=== PATIENT | female | born 1935 | race Caucasian/White ===

== ENCOUNTER 2021-07-18 13:34 | Inpatient (IN) | payer MEDICARE ==
[~2021-07-18 13:34] MED LIST: Iopamidol 370 76% 100 ML VIAL ONE
[2021-07-18 14:11] LABS: #Lymphocytes 1.2 thou/uL (1.20-3.40); #Monocytes 0.5 thou/uL (0.11-0.59); #Neutrophils 2.7 thou/uL (1.40-6.50); %Basophils 0.3 % (0.0-1.0); %Eosinophils 1.1 % (0.0-10.0); %Lymphocytes 26.5 % (21.0-51.0); %Monocytes 10.4 % (0.0-10.0); %Neutrophils 61.7 % (42.0-75.0); Hemoglobin 10.5 g/dL (12.0-16.0); Mean Corpuscular HGB CONC 33.6 g/dL (32.0-36.0); Mean Corpuscular Hemoglobin 30.3 pg (27.0-31.0); Mean Corpuscular Volume 90.3 fL (78.0-98.0); Mean Platelet Volume 6.7 fL (7.4-10.4); Platelet Count 201 thou/uL (130-400); RBC Distribution Width 12.9 % (11.5-14.5); Red Blood Cell (RBC) Count 3.46 mill/uL (4.20-5.40); White Blood Cell (WBC) Count 4.4 thou/uL (4.8-10.8)
[2021-07-18 14:18] LABS: PTT 26.2 sec (22.9-36.1); Prothrombin Time 13.5 sec (12.0-14.7)
[2021-07-18 14:30] LABS: ALT (SGPT) Less than 7 U/L (8-55); AST (SGOT) 10 U/L (5-34); Albumin 3.3 g/dL (3.4-4.8); Alkaline Phosphatase 63 U/L (40-110); Anion Gap 11 mmol/L (10-20); BUN (Urea Nitrogen) 34 mg/dL (9.8-20.1); Bilirubin, Total 0.4 mg/dL (0.2-1.2); CK (CPK) 57 U/L (29-168); Calc. Creatinine Clearance 0 mL/min (70-130); Calcium 8.7 mg/dL (7.8-10.44); Carbon Dioxide 24 mmol/L (23-31); Chloride 104 mmol/L (98-107); Globulin 2.7 g/dL (2.4-3.5); Glucose 108 mg/dL (83-110); Sodium 135 mmol/L (136-145)
[2021-07-18] MEDS ORDERED: Aspirin Chewable 81 MG TAB ONE (15:44)
[2021-07-18] MEDS ORDERED: Ondansetron PF 4 MG/2 ML Vial IVP PRN (15:55)
[2021-07-18] MEDS ORDERED: Senokot S 8.6-50 MG TAB PO PRN (15:55)
[2021-07-18] MEDS ORDERED: Bisacodyl 5 MG TAB PO PRN (15:55)
[2021-07-18 17:08] LABS: Albumin 3.6 g/dL (3.4-4.8); Anion Gap 12 mmol/L (10-20); BUN (Urea Nitrogen) 32 mg/dL (9.8-20.1); Bilirubin, Total 0.4 mg/dL (0.2-1.2); Calc. Creatinine Clearance 0 mL/min (70-130); Calcium 9.2 mg/dL (7.8-10.44); Carbon Dioxide 25 mmol/L (23-31); Chloride 103 mmol/L (98-107); Glucose 112 mg/dL (83-110); Protein, Total 6.6 g/dL (5.8-8.1); Sodium 136 mmol/L (136-145)
[2021-07-18 17:09] LABS: ALT (SGPT) Less than 7 U/L (8-55); AST (SGOT) 10 U/L (5-34); Alkaline Phosphatase 70 U/L (40-110)
[2021-07-18] MEDS ORDERED: hydrALAZINE 20 MG/ML VIAL SLOW IVP PRN ×2 (18:06→22:35)
[2021-07-18] MEDS: Sodium Chloride 0.9% 1,000 ML IV SCH (18:17)
[2021-07-18] MEDS ORDERED: hydrALAZINE 20 MG/ML VIAL ONE (18:19)
[2021-07-18 20:37] LABS: SARS-CoV-2 NAA Rapid Test Not Detected (NotDetected)
[2021-07-18] MEDS ORDERED: Atorvastatin Calcium 40 MG TAB PO SCH (21:00)
[2021-07-18] MEDS ORDERED: Famotidine/PF 20 mg/2ml Vial SLOW IVP SCH (21:00)
[2021-07-18 21:34] VITALS: BMI 21.7
[2021-07-19] MEDS: Melatonin 3 MG TAB PO PRN (00:37)
[2021-07-19] MEDS: Acetaminophen 325 MG TAB PO PRN (00:37)
[2021-07-19 06:39] LABS: #Eosinphils 0.1 thou/uL (0.0-0.7); #Lymphocytes 1.3 thou/uL (1.20-3.40); #Monocytes 0.6 thou/uL (0.11-0.59); #Neutrophils 3.2 thou/uL (1.40-6.50); %Basophils 0.5 % (0.0-1.0); %Eosinophils 1.3 % (0.0-10.0); %Lymphocytes 24.9 % (21.0-51.0); %Neutrophils 62.3 % (42.0-75.0); Hemoglobin 11.1 g/dL (12.0-16.0); Mean Corpuscular Hemoglobin 30.1 pg (27.0-31.0); Mean Corpuscular Volume 88.5 fL (78.0-98.0); Platelet Count 202 thou/uL (130-400); RBC Distribution Width 12.9 % (11.5-14.5); Red Blood Cell (RBC) Count 3.68 mill/uL (4.20-5.40); White Blood Cell (WBC) Count 5.2 thou/uL (4.8-10.8)
[2021-07-19 06:48] LABS: Hemoglobin A1c 5.6 % (4.0-6.0)
[2021-07-19] MEDS ORDERED: Metoprolol Tartrate 25 MG TAB PO SCH (09:00)
[2021-07-19] MEDS ORDERED: Amlodipine 10 MG TAB PO SCH (09:00)
[2021-07-19] MEDS ORDERED: Labetalol HCl 100 MG/20 ML VIAL SLOW IVP PRN (10:11)
[2021-07-19] MEDS: Aspirin Chewable 81 MG TAB PO SCH (10:50)
[2021-07-19] MEDS ORDERED: Clopidogrel Bisulfate 300 MG TAB PO SCH (11:00)
[2021-07-19] MEDS: Sodium Chloride 0.9% 1,000 ML IV SCH ×2 (11:27→21:17)
[2021-07-19] MEDS: Famotidine/PF 20 mg/2ml Vial SLOW IVP SCH (21:18)
[2021-07-19] MEDS: Atorvastatin Calcium 40 MG TAB PO SCH (21:18)
[2021-07-20 08:16] LABS: Free T4 (Free Thyroxine) 1.67 ng/dL (0.70-1.48)
[2021-07-20 08:17] LABS: #Basophils 0.1 thou/uL (0.0-0.2); #Eosinphils 0.1 thou/uL (0.0-0.7); #Lymphocytes 1.4 thou/uL (1.20-3.40); #Monocytes 0.9 thou/uL (0.11-0.59); %Basophils 0.6 % (0.0-1.0); %Eosinophils 0.8 % (0.0-10.0); %Lymphocytes 16.5 % (21.0-51.0); %Monocytes 10.4 % (0.0-10.0); %Neutrophils 71.6 % (42.0-75.0); Hemoglobin 12.8 g/dL (12.0-16.0); Mean Corpuscular HGB CONC 33.2 g/dL (32.0-36.0); Mean Corpuscular Hemoglobin 29.6 pg (27.0-31.0); Mean Corpuscular Volume 89.3 fL (78.0-98.0); Mean Platelet Volume 6.9 fL (7.4-10.4); Platelet Count 241 thou/uL (130-400); RBC Distribution Width 13.1 % (11.5-14.5); Red Blood Cell (RBC) Count 4.34 mill/uL (4.20-5.40); White Blood Cell (WBC) Count 8.4 thou/uL (4.8-10.8)
[2021-07-20 08:31] LABS: PTT 24.1 sec (22.9-36.1); Prothrombin Time 13.7 sec (12.0-14.7)
[2021-07-20 08:34] LABS: ALT (SGPT) 9 U/L (8-55); AST (SGOT) 21 U/L (5-34); Albumin 3.7 g/dL (3.4-4.8); Alkaline Phosphatase 75 U/L (40-110); Anion Gap 17 mmol/L (10-20); BUN (Urea Nitrogen) 21 mg/dL (9.8-20.1); Bilirubin, Total 0.6 mg/dL (0.2-1.2); Calc. Creatinine Clearance 30 mL/min (70-130); Calcium 9.6 mg/dL (7.8-10.44); Carbon Dioxide 18 mmol/L (23-31); Chloride 105 mmol/L (98-107); Globulin 3.4 g/dL (2.4-3.5); Glucose 100 mg/dL (83-110); Potassium 3.8 mmol/L (3.5-5.1); Protein, Total 7.1 g/dL (5.8-8.1); Sodium 136 mmol/L (136-145)
[2021-07-20] MEDS: Clopidogrel Bisulfate 75 MG TAB PO SCH (10:29)
[2021-07-20] MEDS: Levothyroxine Sodium 100 MCG TAB PO SCH (10:29)
[2021-07-20] MEDS: Aspirin Chewable 81 MG TAB PO SCH (10:30)
[2021-07-20] MEDS ORDERED: Iopamidol-370 76% 500 ML 1 ML ONE (11:10)
[2021-07-20] MEDS: Sodium Chloride 0.9% 1,000 ML IV SCH ×2 (18:00→18:48)
[2021-07-20] MEDS: Atorvastatin Calcium 40 MG TAB PO SCH (21:37)
[2021-07-20] MEDS: Famotidine/PF 20 mg/2ml Vial SLOW IVP SCH (21:38)
[2021-07-21] MEDS: Levothyroxine Sodium 100 MCG TAB PO SCH (05:09)
[2021-07-21] MEDS: Aspirin Chewable 81 MG TAB PO SCH (11:37)
[2021-07-21] MEDS: Aspirin 300 MG Suppository PR SCH (11:41)
[2021-07-21] MEDS: D5W-AA 4.25% with LYTES 1,000 ML IV SCH ×2 (12:50→23:22)
[2021-07-21] MEDS ORDERED: Atorvastatin Calcium 40 MG TAB PO SCH (14:28)
[2021-07-21] MEDS: Clopidogrel Bisulfate 75 MG TAB PO SCH (17:41)
[2021-07-21] MEDS: Famotidine/PF 20 mg/2ml Vial SLOW IVP SCH (22:33)
[2021-07-21] MEDS: Atorvastatin Calcium 40 MG TAB PO SCH (22:33)
[2021-07-22] MEDS: Levothyroxine Sodium 100 MCG TAB PO SCH (05:04)
[2021-07-22] MEDS ORDERED: Labetalol HCl 100 MG/20 ML VIAL SLOW IVP PRN (08:45)
[2021-07-22] MEDS: Aspirin 300 MG Suppository PR SCH (09:37)
[2021-07-22] MEDS: Clopidogrel Bisulfate 75 MG TAB PO SCH (15:16)
[2021-07-22 15:28] LABS: Syphilis Antibody Nonreactive (Nonreactive); Syphilis Antibody Index 0.06 S/CO (<1.00 Non-Reactive)
[2021-07-22] MEDS: D5W-AA 4.25% with LYTES 1,000 ML IV SCH (21:39)
[2021-07-22] MEDS: Famotidine/PF 20 mg/2ml Vial SLOW IVP SCH (21:50)
[2021-07-23] MEDS: Atorvastatin Calcium 40 MG TAB PO SCH ×2 (01:08→21:20)
[2021-07-23] MEDS: Levothyroxine Sodium 100 MCG TAB PO SCH (05:34)
[2021-07-23] MEDS ORDERED: ceFAZolin 2 GM/DEX 5% 100 ML BAG ONE (07:52)
[2021-07-23] MEDS ORDERED: Metoprolol Tartrate 5 MG/5 ML VIAL ONE (09:07)
[2021-07-23] MEDS: Aspirin 300 MG Suppository PR SCH ×2 (09:07→11:36)
[2021-07-23] MEDS ORDERED: Lidocaine 1% PF 5 ML VIAL ONE (09:07)
[2021-07-23] MEDS ORDERED: Promethazine HCl 25 MG/ML VIAL IM PRN (09:36)
[2021-07-23] MEDS ORDERED: Ondansetron HCl/PF 4 MG/2 ML Vial IVP PRN (09:36)
[2021-07-23] MEDS ORDERED: Promethazine HCl 25 MG/ML VIAL IVPB PRN (09:36)
[2021-07-23 11:41] LABS: Mean Corpuscular HGB CONC 32.8 g/dL (32.0-36.0); Mean Corpuscular Hemoglobin 29.3 pg (27.0-31.0); Mean Corpuscular Volume 89.2 fL (78.0-98.0); Mean Platelet Volume 6.5 fL (7.4-10.4); Platelet Count 263 thou/uL (130-400); Red Blood Cell (RBC) Count 4.08 mill/uL (4.20-5.40); White Blood Cell (WBC) Count 7.9 thou/uL (4.8-10.8)
[2021-07-23] MEDS ORDERED: Lisinopril 20 MG TAB PO SCH (13:00)
[2021-07-23] MEDS ORDERED: Labetalol HCl 100 MG/20 ML VIAL SLOW IVP PRN (16:33)
[2021-07-23] MEDS: Famotidine/PF 20 mg/2ml Vial SLOW IVP SCH (21:20)
[2021-07-23] MEDS: Acetaminophen 325 MG TAB PO PRN (21:21)
[2021-07-24] MEDS: Levothyroxine Sodium 100 MCG TAB PO SCH (06:51)
[2021-07-24] MEDS: Aspirin 300 MG Suppository PR SCH (10:05)
[2021-07-24] MEDS: Lisinopril 20 MG TAB PO SCH (10:06)
[2021-07-24] MEDS: Clopidogrel Bisulfate 75 MG TAB PO SCH (10:07)
[2021-07-24] MEDS: Levothyroxine Sodium 200 MCG VIAL IVP SCH ×2 (10:11→10:12)
[2021-07-24 13:02] LABS: #Eosinphils 0.2 thou/uL (0.0-0.7); #Lymphocytes 0.9 thou/uL (1.20-3.40); #Monocytes 0.7 thou/uL (0.11-0.59); #Neutrophils 7.2 thou/uL (1.40-6.50); %Basophils 0.1 % (0.0-1.0); %Eosinophils 2.1 % (0.0-10.0); %Lymphocytes 9.7 % (21.0-51.0); %Monocytes 7.4 % (0.0-10.0); %Neutrophils 80.8 % (42.0-75.0); Mean Corpuscular HGB CONC 34.1 g/dL (32.0-36.0); Mean Corpuscular Hemoglobin 30.6 pg (27.0-31.0); Mean Corpuscular Volume 89.8 fL (78.0-98.0); Mean Platelet Volume 6.9 fL (7.4-10.4); Platelet Count 223 thou/uL (130-400); Red Blood Cell (RBC) Count 3.58 mill/uL (4.20-5.40); White Blood Cell (WBC) Count 8.9 thou/uL (4.8-10.8)
[2021-07-24] MEDS: Atorvastatin Calcium 40 MG TAB PO SCH (23:11)
[2021-07-24] MEDS: Melatonin 3 MG TAB PO PRN (23:11)
[2021-07-25] MEDS: Famotidine/PF 20 mg/2ml Vial SLOW IVP SCH (00:10)
[2021-07-25] MEDS: Levothyroxine Sodium 100 MCG TAB PO SCH (06:43)
[2021-07-25] MEDS: Lisinopril 20 MG TAB PO SCH (09:45)
[2021-07-25] MEDS: Aspirin 300 MG Suppository PR SCH (09:45)
[2021-07-25] MEDS: Clopidogrel Bisulfate 75 MG TAB PO SCH (09:45)
[2021-07-25 12:02] VITALS: BP 143/77; TEMP 98.3
== END 2021-07-25 12:13 | DRG 65 ==
LOC: ERS 13:34 → ERHOLD 15:52 → NEURO 21:45 → OBSVTOIN 07-19 10:56
PROVIDERS: ADMIT Internal Medicine; ATTEND Internal Medicine
PROC: 0DH63UZ Insertion of Feeding Device into Stomach, Percutaneous Approach (ICD-10-PCS; principal; 2021-07-23)
DX: I63.89 Other cerebral infarction (principal); G81.91 Hemiplegia, unspecified affecting right dominant side; Z20.822 Contact with and (suspected) exposure to COVID-19; E03.9 Hypothyroidism, unspecified; R47.81 Slurred speech; R29.810 Facial weakness; R29.700 NIHSS score 0; E78.5 Hyperlipidemia, unspecified; R47.01 Aphasia; R13.12 Dysphagia, oropharyngeal phase; I12.9 Hypertensive chronic kidney disease with stage 1 through stage 4 chronic kidney disease, or unspecified chronic kidney disease; N18.9 Chronic kidney disease, unspecified; K29.70 Gastritis, unspecified, without bleeding; Z79.890 Hormone replacement therapy; Z79.899 Other long term (current) drug therapy; Z90.49 Acquired absence of other specified parts of digestive tract
CPT/HCPCS: 36415; 36416; 70450; 70496; 70498; 70551; 71045; 72125; 74230; 80053; 80061; 82550; 83036; 84439; 84443; 84481; 84484; 85025; 85027; 85610; 85730; 86780; 93005; 93010; 93306; 94760; 96374; 96375; G0378; J0360; J7050; Q9967; S0028; U0002